=== PATIENT | female | born 1965 ===

== ENCOUNTER 2022-04-10 16:44 | Emergency (ER) | payer SELFPAY ==
[~2022-04-10] VITALS: Ht 165.1 cm; Wt 122.5 kg
[2022-04-10] MEDS ORDERED: TIZA4 (17:56)
[2022-04-10] MEDS ORDERED: ONDA4 PO (18:33)
[2022-04-10] MEDS ORDERED: Robaxin750 MG PO (18:33)
[2022-04-10] MEDS ORDERED: LIDO700A20 TOP (18:33)
== END 2022-04-10 18:46 | disposition home or self-care (01) ==
LOC: ER 16:44
DX: M54.2 Cervicalgia (principal); Z79.899 Other long term (current) drug therapy
CPT/HCPCS: A9270; J1885